=== PATIENT | female | born 1930 | race Caucasian/White ===

== ENCOUNTER 2017-01-06 11:27 | Inpatient (IN) | payer MEDICARE, BC ==
[~2017-01-06] VITALS: Ht 172.7 cm; Wt 81.6 kg
[2017-01-06] MEDS ORDERED: SODIUM CHLORIDE 0.9% 1,000 ML IV ONE (11:41)
[2017-01-06 12:00] LABS: HEMATOCRIT 46.8 % (34.6-47.8); HEMOGLOBIN 15.3 g/dL (11.7-16.4); WHITE BLOOD COUNT 10.6 x10^3/uL (3.4-10)
[2017-01-06] MEDS ORDERED: ALBUTEROL/IPRATROPIUM 2.5MG/0.5MG, 3 ML NPPB ONE (12:00)
[2017-01-06] MEDS ORDERED: SODIUM CHLORIDE FLUSH 10ML SYR IVF ONE (12:00)
[2017-01-06] MEDS ORDERED: ASPIRIN 81 MG TABLET CHEW PO ONE (12:00)
[2017-01-06] MEDS ORDERED: SODIUM CHLORIDE 0.9% 1,000ML IVBOLUS ONE (12:00)
[2017-01-06 12:06] LABS: ASPARTATE AMINO TRANSFERASE 111 U/L (15-37); BLOOD UREA NITROGEN 87 mg/dL (7-18)
[2017-01-06] MEDS ORDERED: FUROSEMIDE 40 MG/4 ML ONE ×2 (12:10→14:37)
[2017-01-06 12:11] LABS: IS PT STATUS REG ER OR PRE ER? YES
[2017-01-06 12:26] LABS: DIFF TOTAL CELLS COUNTED 100 CELL DIFF
[2017-01-06 12:29] LABS: ANISOCYTOSIS 1+; VERIFY COUNTS? YES
[2017-01-06 12:30] LABS: ABG COLLECTION SITE RIGHT BRACHIAL
[2017-01-06] MEDS ORDERED: SODIUM CHLORIDE 0.9%, 500ML IVBOLUS ONE (12:30)
[2017-01-06] MEDS ORDERED: FUROSEMIDE 20 MG/2 ML IV ONE (12:30)
[2017-01-06] MEDS ORDERED: VENL150C6 PO (12:59)
[2017-01-06] MEDS ORDERED: DILT360C26 PO (12:59)
[2017-01-06] MEDS ORDERED: MELO7.5T5 PO (12:59)
[2017-01-06] MEDS ORDERED: OMEG1CAP23 PO (12:59)
[2017-01-06] MEDS ORDERED: CEFTRIAXONE PMX 1GM/50ML 50 ML IV ONE (13:00)
[2017-01-06] MEDS ORDERED: ALBUTEROL/IPRATROPIUM 2.5MG/0.5MG, 3 ML ONE (13:26)
[2017-01-06] MEDS ORDERED: CEFTRIAXONE PMX 1GM/50ML 50 ML ONE (13:48)
[2017-01-06] MEDS ORDERED: BISACODYL 10 MG SUPP PR PRN (14:30)
[2017-01-06] MEDS ORDERED: ONDANSETRON 2MG/ML, 2ML IVPush PRN (14:30)
[2017-01-06] MEDS ORDERED: FUROSEMIDE 100 MG/10 ML IV ONE (14:30)
[2017-01-06] MEDS ORDERED: POLYETHYLENE GLYCOL 17 GM PACKET PO PRN (14:30)
[2017-01-06] MEDS ORDERED: LABETALOL 5MG/ML, 20ML IVPush PRN (14:30)
[2017-01-06] MEDS ORDERED: ACETAMINOPHEN 325 MG TABLET PO PRN (14:30)
[2017-01-06] MEDS ORDERED: DOCUSATE 100 MG CAPSULE PO PRN (14:30)
[2017-01-06] MEDS ORDERED: HYDROcodone/APAP 5/325 TABLET PO PRN (14:30)
[2017-01-06] MEDS ORDERED: FUROSEMIDE 20 MG/2 ML ONE (14:37)
[2017-01-06] MEDS ORDERED: ASPIRIN 81 MG TABLET CHEW ONE (15:21)
[2017-01-06] MEDS ORDERED: HEPARIN 25,000 UNITS/500ML PMX 500 ML IV PRN (15:30)
[2017-01-06] MEDS ORDERED: HEPARIN 5,000 UNITS/ML, 1ML IV PRN (15:30)
[2017-01-06] MEDS ORDERED: HEPARIN 5,000 UNITS/ML, 1ML IV ONE (15:30)
[2017-01-06 15:36] VITALS: BP 132/83
[2017-01-06] MEDS: DOXYCYCLINE 100 MG in DEXTROSE 5% 250 ML IV SCH (18:36)
[2017-01-06] MEDS ORDERED: AMIODARONE 150 MG in DEXTROSE 5% 100 ML IV ONE (19:45)
[2017-01-06] MEDS ORDERED: AMIODARONE 900 MG in DEXTROSE 5% 482 ML IV PRN (20:00)
[2017-01-06] MEDS ORDERED: FILTER 0.22 MICRON IV PRN (20:00)
[2017-01-06 20:02] VITALS: BP 106/63
[2017-01-06 20:54] VITALS: BP 132/77
[2017-01-06] MEDS: SODIUM CHLORIDE FLUSH 10ML SYR IVF SCH (21:00)
[2017-01-07 02:37] VITALS: BP 130/82
[2017-01-07 05:58] LABS: HEMATOCRIT 41.9 % (34.6-47.8); HEMOGLOBIN 14.1 g/dL (11.7-16.4); WHITE BLOOD COUNT 14.2 x10^3/uL (3.4-10)
[2017-01-07 06:06] LABS: ASPARTATE AMINO TRANSFERASE 158 U/L (15-37)
[2017-01-07 06:08] LABS: BLOOD UREA NITROGEN 104 mg/dL (7-18)
[2017-01-07 06:19] LABS: DIFF TOTAL CELLS COUNTED 100 CELL DIFF
[2017-01-07 06:22] LABS: ANISOCYTOSIS 1+; VERIFY COUNTS? YES
[2017-01-07] MEDS: DOXYCYCLINE 100 MG in DEXTROSE 5% 250 ML IV SCH (06:39)
[2017-01-07 08:24] VITALS: BP 142/78
[2017-01-07] MEDS ORDERED: FUROSEMIDE 20 MG/2 ML IV SCH (08:30)
[2017-01-07] MEDS: SODIUM CHLORIDE FLUSH 10ML SYR IVF SCH ×2 (10:06→21:42)
[2017-01-07 10:42] LABS: HEP B SURF. AB < 3.1 mIU/mL (0.0-10.0)
[2017-01-07] MEDS: ERGOCALCIFEROL 50,000 UNIT CAPSULE PO SCH (11:00)
[2017-01-07] MEDS ORDERED: PIPERACILLIN/TAZO/PMX 3.375GM 50 ML IV SCH (11:00)
[2017-01-07] MEDS: PIPERACILLIN/TAZO/PMX 2.25GM 50 ML IV SCH ×2 (11:35→23:35)
[2017-01-07] MEDS: LINEZOLID PMX 600MG/300ML 300 ML IV SCH (12:11)
[2017-01-07 13:24] VITALS: BP 134/80
[2017-01-07] MEDS ORDERED: CEFTRIAXONE PMX 1GM/50ML 50 ML IV SCH (14:00)
[2017-01-07] MEDS: ALBUMIN HUMAN 25% 100 ML IV SCH ×2 (16:41→22:48)
[2017-01-07 16:52] LABS: IS PT STATUS REG ER OR PRE ER? NO
[2017-01-07] MEDS ORDERED: AMIODARONE 900 MG in DEXTROSE 5% 482 ML IV PRN (18:30)
[2017-01-07] MEDS ORDERED: AMIODARONE 150 MG in DEXTROSE 5% 100 ML IV ONE (19:30)
[2017-01-07] MEDS ORDERED: HEPARIN 5,000 UNITS/ML, 1ML IV ONE (19:30)
[2017-01-07 19:36] LABS: ABG COLLECTION SITE RIGHT RADIAL; COLLATERAL CIRCULATION TESTING NORMAL
[2017-01-07 19:49] LABS: BLOOD UREA NITROGEN 53 mg/dL (7-18)
[2017-01-07 19:56] LABS: HEMATOCRIT 35.3 % (34.6-47.8); HEMOGLOBIN 11.9 g/dL (11.7-16.4); WHITE BLOOD COUNT 12.6 x10^3/uL (3.4-10)
[2017-01-07 19:57] LABS: DIFF TOTAL CELLS COUNTED 100 CELL DIFF
[2017-01-07 19:59] LABS: VERIFY COUNTS? YES
[2017-01-07 20:00] LABS: ANISOCYTOSIS 1+; POLYCHROMASIA 1+
[2017-01-07] MEDS ORDERED: FUROSEMIDE 100 MG/10 ML IV ONE (20:00)
[2017-01-07 20:01] LABS: LARGE PLATELETS 1+
[2017-01-07] MEDS: HEPARIN 25,000 UNITS/500ML PMX 500 ML IV PRN (20:02)
[2017-01-07] MEDS: morphine SULFATE 10 MG/ML, 1ML IVPush PRN (21:47)
[2017-01-07 22:46] LABS: IS PT STATUS REG ER OR PRE ER? NO
[2017-01-08] MEDS: morphine SULFATE 10 MG/ML, 1ML IVPush PRN (00:10)
[2017-01-08] MEDS: LINEZOLID PMX 600MG/300ML 300 ML IV SCH (00:10)
[2017-01-08 05:00] VITALS: BP 104/68
[2017-01-08] MEDS: ALBUMIN HUMAN 25% 100 ML IV SCH ×2 (05:23→10:50)
[2017-01-08 05:51] LABS: IS PT STATUS REG ER OR PRE ER? NO
[2017-01-08 06:03] LABS: HEMATOCRIT 30.9 % (34.6-47.8); HEMOGLOBIN 10.3 g/dL (11.7-16.4); WHITE BLOOD COUNT 11.8 x10^3/uL (3.4-10)
[2017-01-08 06:09] LABS: ASPARTATE AMINO TRANSFERASE 45 U/L (15-37); BLOOD UREA NITROGEN 65 mg/dL (7-18); LACTATE DEHYDROGENASE 144 U/L (84-246)
[2017-01-08 06:32] LABS: DIFF TOTAL CELLS COUNTED 100 CELL DIFF
[2017-01-08 06:35] LABS: ANISOCYTOSIS 1+; POLYCHROMASIA 1+; VERIFY COUNTS? YES
[2017-01-08 06:36] LABS: LARGE PLATELETS 1+
[2017-01-08] MEDS ORDERED: POTASSIUM CHLORIDE 10% 40 MEQ/30 ML UDC PO ONE (10:30)
[2017-01-08] MEDS: SODIUM CHLORIDE FLUSH 10ML SYR IVF SCH ×2 (10:51→22:11)
[2017-01-08] MEDS: PIPERACILLIN/TAZO/PMX 2.25GM 50 ML IV SCH ×2 (11:34→22:11)
[2017-01-08 12:05] LABS: CELLS COUNTED 2492; DILUTION 10; WBC SQUARES COUNTED 4
[2017-01-08] MEDS: HEPARIN 5,000 UNITS/ML, 1ML IV PRN ×2 (16:20→23:02)
[2017-01-08] MEDS ORDERED: AMIODARONE 900 MG in DEXTROSE 5% 482 ML IV PRN (18:30)
[2017-01-09] MEDS: HEPARIN 25,000 UNITS/500ML PMX 500 ML IV PRN (01:20)
[2017-01-09 04:00] VITALS: BP 111/57
[2017-01-09 05:16] LABS: HEMATOCRIT 28.1 % (34.6-47.8); HEMOGLOBIN 9.3 g/dL (11.7-16.4); WHITE BLOOD COUNT 12.7 x10^3/uL (3.4-10)
[2017-01-09 05:35] LABS: ASPARTATE AMINO TRANSFERASE 26 U/L (15-37); BLOOD UREA NITROGEN 68 mg/dL (7-18)
[2017-01-09 05:51] LABS: DIFF TOTAL CELLS COUNTED 100 CELL DIFF
[2017-01-09 05:52] LABS: ANISOCYTOSIS 1+; VERIFY COUNTS? YES
[2017-01-09 05:53] LABS: LARGE PLATELETS 1+
[2017-01-09] MEDS: CEFTRIAXONE PMX 1GM/50ML 50 ML IV SCH ×2 (08:54→20:56)
[2017-01-09] MEDS: LACTOBACILLUS CHEW TABLET PO SCH ×3 (08:56→20:26)
[2017-01-09] MEDS: SODIUM CHLORIDE FLUSH 10ML SYR IVF SCH ×2 (08:56→20:27)
[2017-01-09] MEDS: POTASSIUM CHLORIDE 10% 40 MEQ/30 ML UDC PO SCH ×2 (08:56→20:26)
[2017-01-09] MEDS: LACTULOSE 20 GM/30 ML UDC PO SCH ×2 (08:57→20:26)
[2017-01-09] MEDS ORDERED: ONDANSETRON 2MG/ML, 2ML IVPush PRN (15:30)
[2017-01-09] MEDS ORDERED: LABETALOL 5MG/ML, 20ML IVPush PRN (15:30)
[2017-01-09] MEDS ORDERED: DOCUSATE 100 MG CAPSULE PO PRN (15:30)
[2017-01-09] MEDS ORDERED: POLYETHYLENE GLYCOL 17 GM PACKET PO PRN (15:30)
[2017-01-09] MEDS ORDERED: ACETAMINOPHEN 325 MG TABLET PO PRN (15:30)
[2017-01-09] MEDS: SODIUM CHLORIDE 0.9% 1,000 ML IV SCH (17:16)
[2017-01-09] MEDS: AMIODARONE 200 MG TABLET PO SCH (20:27)
[2017-01-09] MEDS: BISACODYL 10 MG SUPP PR PRN (21:46)
[2017-01-10 03:35] VITALS: BP 130/68
[2017-01-10 04:38] LABS: HEMATOCRIT 31.5 % (34.6-47.8); HEMOGLOBIN 10.4 g/dL (11.7-16.4); WHITE BLOOD COUNT 12.9 x10^3/uL (3.4-10)
[2017-01-10 04:49] LABS: ASPARTATE AMINO TRANSFERASE 29 U/L (15-37); BLOOD UREA NITROGEN 63 mg/dL (7-18)
[2017-01-10] MEDS: SODIUM CHLORIDE 0.9% 1,000 ML IV SCH (05:54)
[2017-01-10] MEDS: CEFTRIAXONE PMX 1GM/50ML 50 ML IV SCH ×2 (08:43→20:00)
[2017-01-10] MEDS: AMIODARONE 200 MG TABLET PO SCH ×2 (08:44→21:00)
[2017-01-10] MEDS: SODIUM CHLORIDE FLUSH 10ML SYR IVF SCH ×2 (08:44→21:00)
[2017-01-10] MEDS: LACTOBACILLUS CHEW TABLET PO SCH ×3 (08:44→21:00)
[2017-01-10] MEDS: LACTULOSE 20 GM/30 ML UDC PO SCH (08:44)
[2017-01-10] MEDS: NEUTRA PHOS K 250 MG TABLET NG SCH ×3 (08:55→21:00)
[2017-01-10] MEDS ORDERED: NEUTRA PHOS K 250 MG TABLET NG SCH (09:00)
[2017-01-10 14:00] VITALS: BP 149/86
[2017-01-10 20:14] VITALS: BP 162/101
[2017-01-11] MEDS: SODIUM CHLORIDE 0.9% 1,000 ML IV SCH (01:24)
[2017-01-11 02:06] VITALS: BP 149/85
[2017-01-11 06:21] LABS: HEMATOCRIT 32.2 % (34.6-47.8); HEMOGLOBIN 10.7 g/dL (11.7-16.4); WHITE BLOOD COUNT 14.3 x10^3/uL (3.4-10)
[2017-01-11 06:26] LABS: BLOOD UREA NITROGEN 46 mg/dL (7-18)
[2017-01-11 07:42] VITALS: BP 150/88
[2017-01-11] MEDS: CEFTRIAXONE PMX 1GM/50ML 50 ML IV SCH ×2 (08:36→20:21)
[2017-01-11] MEDS: LACTOBACILLUS CHEW TABLET PO SCH ×3 (08:36→20:22)
[2017-01-11] MEDS: NEUTRA PHOS K 250 MG TABLET NG SCH ×3 (08:36→20:22)
[2017-01-11] MEDS: AMIODARONE 200 MG TABLET PO SCH ×2 (08:36→20:21)
[2017-01-11] MEDS: SODIUM CHLORIDE FLUSH 10ML SYR IVF SCH ×2 (08:37→20:22)
[2017-01-11] MEDS: SODIUM CHLORIDE 0.45% 1,000 ML IV SCH (10:10)
[2017-01-11 13:04] VITALS: BP 144/86
[2017-01-11 13:13] LABS: POTASSIUM,URINE RANDOM 42 mmol/L
[2017-01-11] MEDS: BISACODYL 10 MG SUPP PR PRN (14:12)
[2017-01-11 20:03] VITALS: BP 123/80
[2017-01-12 03:00] VITALS: BP 137/83
[2017-01-12 04:10] LABS: ASPARTATE AMINO TRANSFERASE 31 U/L (15-37); BLOOD UREA NITROGEN 35 mg/dL (7-18)
[2017-01-12 04:25] LABS: HEMATOCRIT 30.2 % (34.6-47.8); HEMOGLOBIN 9.9 g/dL (11.7-16.4); WHITE BLOOD COUNT 16.8 x10^3/uL (3.4-10)
[2017-01-12] MEDS: SODIUM CHLORIDE 0.45% 1,000 ML IV SCH (05:13)
[2017-01-12 08:30] VITALS: BP 142/71
[2017-01-12] MEDS: LACTOBACILLUS CHEW TABLET PO SCH ×3 (08:54→20:20)
[2017-01-12] MEDS: CEFTRIAXONE PMX 1GM/50ML 50 ML IV SCH ×2 (08:54→20:21)
[2017-01-12] MEDS: SODIUM CHLORIDE FLUSH 10ML SYR IVF SCH ×2 (08:55→20:21)
[2017-01-12] MEDS: AMIODARONE 200 MG TABLET PO SCH ×2 (08:55→20:21)
[2017-01-12] MEDS: POTASSIUM ACID PHOSPHATE 500 MG TABLET.SOL NG SCH ×2 (13:52→18:02)
[2017-01-12 14:06] VITALS: BP 102/69
[2017-01-12 20:05] VITALS: BP 115/63
[2017-01-13] MEDS: SODIUM CHLORIDE 0.45% 1,000 ML IV SCH ×2 (00:43→20:58)
[2017-01-13] MEDS: POTASSIUM ACID PHOSPHATE 500 MG TABLET.SOL NG SCH ×4 (00:43→17:22)
[2017-01-13 02:00] VITALS: BP 110/59
[2017-01-13 04:48] LABS: HEMATOCRIT 28.6 % (34.6-47.8); HEMOGLOBIN 9.5 g/dL (11.7-16.4)
[2017-01-13 04:56] LABS: ASPARTATE AMINO TRANSFERASE 22 U/L (15-37); BLOOD UREA NITROGEN 31 mg/dL (7-18)
[2017-01-13 07:54] VITALS: BP 119/77
[2017-01-13] MEDS: CEFTRIAXONE PMX 1GM/50ML 50 ML IV SCH ×2 (08:20→20:57)
[2017-01-13] MEDS: SODIUM CHLORIDE FLUSH 10ML SYR IVF SCH ×2 (08:21→20:58)
[2017-01-13] MEDS: AMIODARONE 200 MG TABLET PO SCH ×2 (08:21→20:58)
[2017-01-13] MEDS: LACTOBACILLUS CHEW TABLET PO SCH ×3 (08:21→20:58)
[2017-01-13 12:49] VITALS: BP 122/80
[2017-01-13 19:00] VITALS: BP 104/74
[2017-01-14] MEDS: POTASSIUM ACID PHOSPHATE 500 MG TABLET.SOL NG SCH ×3 (00:46→12:00)
[2017-01-14 02:23] VITALS: BP 127/85
[2017-01-14 05:21] LABS: HEMATOCRIT 27.3 % (34.6-47.8); HEMOGLOBIN 9.1 g/dL (11.7-16.4); WHITE BLOOD COUNT 19.5 x10^3/uL (3.4-10)
[2017-01-14 05:26] LABS: BLOOD UREA NITROGEN 32 mg/dL (7-18)
[2017-01-14] MEDS ORDERED: LORazepam 2 MG/ML, 1ML IVPush ONE (06:30)
[2017-01-14 08:53] VITALS: BP 124/89
[2017-01-14] MEDS: AMIODARONE 200 MG TABLET PO SCH (09:17)
[2017-01-14] MEDS: CEFTRIAXONE PMX 1GM/50ML 50 ML IV SCH (09:17)
[2017-01-14] MEDS: LACTOBACILLUS CHEW TABLET PO SCH (09:17)
[2017-01-14] MEDS: SODIUM CHLORIDE FLUSH 10ML SYR IVF SCH (09:17)
[2017-01-14] MEDS: ERGOCALCIFEROL 50,000 UNIT CAPSULE PO SCH (11:00)
[2017-01-14] MEDS ORDERED: AMIO200T42 PO (11:39)
[2017-01-14] MEDS ORDERED: AMOX1TAB64 PO (11:39)
[2017-01-14 13:55] VITALS: BP 126/85
== END 2017-01-14 15:10 | disposition hospice, home (50) | DRG 871 ==
LOC: ED 11:35 → EDIP 13:11 → 4EST 15:02 → 5SO 20:21 → CCU 01-07 19:05 → 4EST 01-10 12:04
PROVIDERS: ADMIT Internal Medicine; ATTEND Internal Medicine
PROC: 02HV33Z Insertion of Infusion Device into Superior Vena Cava, Percutaneous Approach (ICD-10-PCS; 2017-01-07)
PROC: B548ZZA Ultrasonography of Superior Vena Cava, Guidance (ICD-10-PCS; 2017-01-07)
PROC: 5A1D00Z (ICD-10-PCS; 2017-01-07)
PROC: 0W993ZZ Drainage of Right Pleural Cavity, Percutaneous Approach (ICD-10-PCS; 2017-01-08)
PROC: 0T9B70Z Drainage of Bladder with Drainage Device, Via Natural or Artificial Opening (ICD-10-PCS; principal; 2017-01-11)
DX: A41.3 Sepsis due to Hemophilus influenzae (principal); J96.01 Acute respiratory failure with hypoxia; N17.0 Acute kidney failure with tubular necrosis; E43 Unspecified severe protein-calorie malnutrition; G93.40 Encephalopathy, unspecified; G93.41 Metabolic encephalopathy; I50.33 Acute on chronic diastolic (congestive) heart failure; J18.9 Pneumonia, unspecified organism; J85.0 Gangrene and necrosis of lung; R13.10 Dysphagia, unspecified; E87.2 Acidosis; E87.0 Hyperosmolality and hypernatremia; I13.0 Hypertensive heart and chronic kidney disease with heart failure and stage 1 through stage 4 chronic kidney disease, or unspecified chronic kidney disease; E87.1 Hypo-osmolality and hyponatremia; I31.3 Pericardial effusion (noninflammatory); D69.6 Thrombocytopenia, unspecified; N18.3 Chronic kidney disease, stage 3 (moderate); D63.8 Anemia in other chronic diseases classified elsewhere; E78.00 Pure hypercholesterolemia, unspecified; E83.39 Other disorders of phosphorus metabolism; E83.52 Hypercalcemia; E87.6 Hypokalemia; F32.9 Major depressive disorder, single episode, unspecified; I35.8 Other nonrheumatic aortic valve disorders; I45.10 Unspecified right bundle-branch block; I48.0 Paroxysmal atrial fibrillation; K21.9 Gastro-esophageal reflux disease without esophagitis; K52.9 Noninfective gastroenteritis and colitis, unspecified; K57.30 Diverticulosis of large intestine without perforation or abscess without bleeding; K76.9 Liver disease, unspecified; K82.8 Other specified diseases of gallbladder; M19.90 Unspecified osteoarthritis, unspecified site; Z96.653 Presence of artificial knee joint, bilateral; R65.20 Severe sepsis without septic shock; Z79.82 Long term (current) use of aspirin; Z82.49 Family history of ischemic heart disease and other diseases of the circulatory system; Z87.01 Personal history of pneumonia (recurrent); Z87.891 Personal history of nicotine dependence; Z88.5 Allergy status to narcotic agent; Z80.8 Family history of malignant neoplasm of other organs or systems; Z83.2 Family history of diseases of the blood and blood-forming organs and certain disorders involving the immune mechanism; Z81.8 Family history of other mental and behavioral disorders; Z66 Do not resuscitate
CPT/HCPCS: 32555; 36415; 36556; 36600; 51702; 70450; 71010; 71250; 74000; 74176; 76770; 76937; 77001; 78582; 80048; 80053; 80069; 81001; 82105; 82140; 82306; 82330; 82378; 82436; 82570; 82652; 82803; 82945; 83605; 83615; 83735; 83880; 83970; 83986; 84100; 84133; 84145; 84156; 84157; 84300; 84443; 84484; 85025; 85379; 85520; 86301; 86704; 86706; 87040; 87070; 87075; 87081; 87086; 87205; 87340; 88112; 88305; 89051; 93005; 93306; 93970; 94640; 96361; 96374; 96376; J0696; J1644; J1940; J2020; J2543; J7060; J7620; P9047; A9540; A9558; C1751; C9898; J0282; J1642; J2270; J7030; J7040; J7512